=== PATIENT | male | born 1970 | race African-American/Black ===

== ENCOUNTER 2016-04-17 09:03 | Emergency (ER) | payer OTHER ==
[~2016-04-17] VITALS: Ht 180.3 cm; Wt 90.7 kg
[~2016-04-17 09:03] MED LIST: CEPHALEXIN500 MG ORAL; MECLIZINE HCL25 MG ORAL; NKM; TRAMADOL HCL50 MG ORAL
[2016-04-17] MEDS ORDERED: Ketorolac 60mg Inj IM ONE (09:45)
--- NOTE | 2016-04-17 09:46 | Emergency Room Report ---
History of Present Illness General Chief Complaint: Abdominal Pain Source: Patient Present Illness HPI Patient presents with right inguinal abdominal pain Onset yesterday Patient was here previously in January that he has follow up with his primary physician and everything turned out well Previously patient was having flank and lower abdominal pain That seemed to have improved however the pain has now localized to the inguinal area Denies any blood in the urine denies any other chest pain or shortness of breath Denies any testicular pain Denies any pain with urination Inguinal pain is 3/10 sharp Allergies: Coded Allergies: No Known Allergies (Unverified , 03/21/14) Patient History Past Medical History: see triage record Pertinent Family History: none Reviewed Nursing Documentation: PMH: Agreed, PSxH: Agreed Nursing Documentation-PMH Past Medical History: No Stated History Review of Systems All Other Systems: negative except mentioned in HPI Physical Exam Vital Signs Date Time Temp Pulse Resp B/P Pulse Ox O2 Delivery O2 Flow Rate FiO2 04/17/16 09:10 98.1 80 18 150/88 99 Room Air Sp02 EP Interpretation: reviewed, normal General Appearance: well appearing, no apparent distress Head: normocephalic, atraumatic Eyes: bilateral eye EOMI, bilateral eye PERRL ENT: hearing grossly normal, normal pharynx, TMs + canals normal, uvula midline Neck: full range of motion, supple, no meningismus, no bony tend Respiratory: lungs clear, normal breath sounds, no rhonchi, no respiratory distress, no retraction, no accessory muscle use Cardiovascular #1: normal peripheral pulses, regular rate, rhythm, no edema, no gallop, no JVD, no murmur Gastrointestinal: normal bowel sounds, non tender - Physical to reproduce the pain however subjectively just at the distal inguinal canal on the right side, testicles nontender, , soft, no mass, no organomegaly, non-distended, no guarding, no hernia, no pulsatile mass, no rebound Genitourinary: no CVA tenderness Musculoskeletal: normal inspection Neurologic: oriented x3, responsive, design director III-XII nml as tested, motor strength/ tone normal, sensory intact Psychiatric: mood/affect normal Skin: normal color, no rash, warm/dry, palpation normal Lymphatic: normal inspection, no adenopathy Medical Decision Making Diagnostic Impression: Primary Impression: Obstructive uropathy ER Course With the history exam and presentation, multiple differentials considered, including but not limited to appendicitis, gastritis, cholecystitis, diverticulitis Patient's CAT scan reveals to distal ureteral kidney stones appear to be obstructive with resulting in hydronephrosis Patient was given further IV hydration Pain has been well-controlled with the initial Toradol At this time given the patient's repeat presentation unlikely retained stones patient require admission and urology intervention After admission patient now states that he feels significantly better, and wants to try to be at home I did advice him that the stones being retained air can lead to worsening symptoms, sepsis and worsening infection possible internal injury with hemorrhage and bleeding however the patient is refusing admission and further care And will have further outpatient follow Labs Test 04/17/16 09:14 04/17/16 12:23 Urine Color Yellow Urine Appearance Cloudy Urine pH 5 (4.5-8.0) Urine Specific [place] 1.025 (1.005-1.035) Urine Protein 2+ (NEGATIVE) Urine Glucose (UA) Negative (NEGATIVE) Urine Ketones 1+ (NEGATIVE) Urine Occult Blood 5+ (NEGATIVE) Urine Nitrite Negative (NEGATIVE) Urine Bilirubin Negative (NEGATIVE) Urine Urobilinogen Normal MG/DL (0.0-1.0) Urine Leukocyte Esterase 2+ (NEGATIVE) Urine RBC 20-30 /HPF (0 - 0) Urine WBC 5-10 /HPF (0 - 0) Urine Squamous Epithelial Cells Few /LPF (NONE/OCC) Urine Bacteria Few /HPF (NONE) Urine Mucus Few /LPF (NONE/OCC) White Blood Count 7.0 K/UL (4.8-10.8) Red Blood Count 5.53 M/UL (4.70-6.10) Hemoglobin 16.4 G/DL (14.2-18.0) Hematocrit 48.3 % (42.0-52.0) Mean Corpuscular Volume 87 FL (80-99) Mean Corpuscular Hemoglobin 29.7 PG (27.0-31.0) Mean Corpuscular Hemoglobin Concent 34.0 G/DL (32.0-36.0) Red Cell Distribution Width 11.2 % (11.6-14.8) Platelet Count 291 K/UL (150-450) Mean Platelet Volume 6.6 FL (6.5-10.1) Neutrophils (%) (Auto) 50.8 % (45.0-75.0) Lymphocytes (%) (Auto) 32.9 % (20.0-45.0) Monocytes (%) (Auto) 8.0 % (1.0-10.0) Eosinophils (%) (Auto) 7.3 % (0.0-3.0) Basophils (%) (Auto) 1.1 % (0.0-2.0) Sodium Level 141 mEQ/L (135-145) Potassium Level 4.3 mEQ/L (3.4-4.9) Chloride Level 100 mEQ/L (98-107) Carbon Dioxide Level 27 mEQ/L (20-30) Anion Gap 14 (5-15) Blood Urea Nitrogen 11 mg/dL (7-23) Creatinine 0.9 mg/dL (0.7-1.2) Estimat Glomerular Filtration Rate > 60 mL/min (>60) Glucose Level 100 mg/dL (74-106) Calcium Level 8.6 mg/dL (8.6-10.2) CT/MRI/US Diagnostic Results CT/MRI/US Diagnostic Results : Impression CT abdomen pelvis: Evidence of to distal ureteral stones, hydronephrosis, obstructive in nature 6 and 7 mm Last Vital Signs Date Time Temp Pulse Resp B/P Pulse Ox O2 Delivery O2 Flow Rate FiO2 04/17/16 09:10 98.1 80 18 150/88 99 Room Air Status: improved Disposition: HOME, SELF-CARE Condition: Improved Scripts Ibuprofen* (MOTRIN*) 600 Mg Tablet 600 MG ORAL Q8H Y for For Pain, #30 TAB 0 Refills Prov: MARY GRACE VEGA D.O. 04/17/16 Tamsulosin Hcl (TAMSULOSIN HCL*) 0.4 Mg Cap.er.24h 0.4 MG ORAL BEDTIME, #20 CAP Prov: MARY GRACE VEGA D.O. 04/17/16 Ciprofloxacin Hcl* (CIPROFLOXACIN HCL*) 500 Mg Tablet 500 MG ORAL Q12H, #14 TAB 0 Refills Prov: MARY GRACE VEGA D.O. 04/17/16 Referrals: [facility] (PCP) Additional Instructions: You have perfuse admission to the hospital, this coming to worsening symptoms if you change your mind please return to the emergency room MARY GRACE VEGA D.O. Apr 17, 2016 09:46
[2016-04-17 10:00] VITALS: BP 155/102
[2016-04-17 10:19] LABS: APPEARANCE,URINE CLOUDY; KETONES,URINE 1+ (NEGATIVE); LEUKOCYTE ESTERASE ,URINE 2+ (NEGATIVE); NITRITE,URINE NEGATIVE (NEGATIVE); PH,URINE 5 (4.5-8.0); PROTEIN,URINE 2+ (NEGATIVE); UROBILINOGEN,URINE NORMAL MG/DL (0.0-1.0)
[2016-04-17 10:35] LABS: BACTERIA,URINE FEW /HPF; RBC,URINE 20-30 /HPF (0 - 0); SQUAMOUS EPITHELIAL CELL,UR FEW /LPF (NONE/OCC)
[2016-04-17 10:36] LABS: MUCUS,URINE FEW /LPF (NONE/OCC)
[2016-04-17 11:00] VITALS: BP 139/97
[2016-04-17 11:41] VITALS: BP 139/97
[2016-04-17 12:47] LABS: BASOPHILS % (AUTO) 1.1 % (0.0-2.0); EOSINOPHILS % (AUTO) 7.3 % (0.0-3.0); LYMPHOCYTES % (AUTO) 32.9 % (20.0-45.0); MEAN CORPUSCULAR HEMOGLOBIN 29.7 PG (27.0-31.0); MEAN CORPUSCULAR VOLUME 87 FL (80-99); MEAN PLATELET VOLUME 6.6 FL (6.5-10.1); NEUTROPHILS % (AUTO) 50.8 % (45.0-75.0); PLATELET COUNT 291 K/UL (150-450); RED BLOOD COUNT 5.53 M/UL (4.70-6.10); RED CELL DISTRIBUTION WIDTH 11.2 % (11.6-14.8)
[2016-04-17 12:56] LABS: ANION GAP 14 (5-15); CALCIUM 8.6 mg/dL (8.6-10.2); CARBON DIOXIDE 27 mEQ/L (20-30); CHLORIDE 100 mEQ/L (98-107); CREATININE 0.9 mg/dL (0.7-1.2); GLOMERULAR FILTRATION RATE > 60 mL/min (>60); HEMOLYSIS 10; POTASSIUM 4.3 mEQ/L (3.4-4.9); SODIUM 141 mEQ/L (135-145)
[2016-04-17] MEDS ORDERED: CIPROFLOXACIN500 M2 ORAL (14:14)
[2016-04-17] MEDS ORDERED: IBUPROFEN600 MG ORAL (14:14)
[2016-04-17] MEDS ORDERED: TAMSULOSIN HCL0.4 MG ORAL (14:14)
[2016-04-17 14:22] VITALS: BP 131/84
[2016-04-17 14:23] VITALS: BP 131/84
--- NOTE | 2016-04-21 11:45 | Diagnostic Imaging Report ---
Indication: Abdominal pain Technique: Continuous helical transaxial imaging of the abdomen and pelvis was obtained from the lung bases to the pubic symphysis. No intravenous contrast was administered. Coronal 2-D reformats were also obtained. Total Dose length Product (DLP): [address] Dose Index Volume (CTDIvol): 15 mGy Comparison: none Findings: The lung bases are clear. There is a nodule in the left upper quadrant next to the spleen measuring 2 cm. 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 There is moderate right hydronephrosis with some periureteral stranding secondary to 2 stones present within the distal ureter, stacked on each other. The stones measure between 6 and 7 mm each and are seen several centimeters proximal to the ureterovesical junction. No other stones are demonstrated within either kidney. Diverticula are noted within the colon. Urinary bladder is unremarkable in appearance. Surgical clips are noted in relation to the expected location of the appendix which is not identified. The fat in the mesenteric root appears slightly increased in attenuation compared to the remainder of the mesenteric fat. The reason for this is not known. Small nonspecific node demonstrated in the right inguinal region measuring 1.3 CM. Impression: Right hydronephrosis secondary to 2 stones in the distal right ureter measuring 6 and 7 mm. Status post appendectomy Diverticulosis of the colon Mesenteric panniculitis Accessory spleen The CT scanner at [facility] is accredited by the [employer] and the scans are performed using protocols designed to limit radiation exposure to as low as reasonably achievable to attain images of sufficient resolution adequate for diagnostic evaluation.
== END 2016-04-17 14:24 | disposition home or self-care (01) ==
LOC: ENRESERV → ENRESERVDT → ENRESERVTM → EMR 09:32 → EDBEDREQ 12:43 → 4E 13:13 → UNDOADMIN 13:13 → EDBEDREQ 13:27
DX: N13.9 Obstructive and reflux uropathy, unspecified (principal)
CPT/HCPCS: 36415; 74176; 80048; 81003; 85025; 96372; 96374

== ENCOUNTER 2017-06-02 13:05 | Emergency (ER) | payer OTHER ==
[~2017-06-02] VITALS: Ht 170.2 cm; Wt 90.7 kg
[~2017-06-02 13:05] MED LIST changes: +CIPROFLOXACIN500 M2 ORAL; +IBUPROFEN600 MG ORAL; +TAMSULOSIN HCL0.4 MG ORAL
--- NOTE | 2017-06-02 14:42 | Emergency Room Report ---
History of Present Illness General Chief Complaint: Upper Respiratory Illness Source: Patient Present Illness HPI 46 yo male patient presents to ER complaining of cough and flu-like symptoms times x1 day Patient complains of cough with sputum; denies blood in sputum. Patient reports subjective fever. Denies hx of asthma, denies hx of cardiovascular disease. Reports hx of sick contacts at home with similar symptoms. Denies diarrhea, vomiting, and chest pain. Denies diarrhea, abdominal pain, loss of vision. Allergies: Coded Allergies: No Known Allergies (Unverified , 03/21/14) Patient History Past Medical History: see triage record Reviewed Nursing Documentation: PMH: Agreed, PSxH: Agreed Nursing Documentation-PMH Past Medical History: No History, Except For Hx Gastrointestinal Problems: Yes - appendicitis Review of Systems All Other Systems: negative except mentioned in HPI Physical Exam Vital Signs Date Time Temp Pulse Resp B/P (MAP) Pulse Ox O2 Delivery O2 Flow Rate FiO2 06/02/17 13:09 97.7 110 24 94 Room Air 97.7 Sp02 EP Interpretation: reviewed, normal General Appearance: well appearing, no apparent distress, alert, GCS 15 Head: normocephalic, atraumatic Eyes: bilateral eye normal inspection, bilateral eye PERRL ENT: hearing grossly normal, normal pharynx, no angioedema, normal voice, uvula midline, moist mucus membranes Neck: full range of motion Respiratory: normal breath sounds, no retraction, no accessory muscle use, speaking full sentences, wheezing Cardiovascular #1: regular rate, rhythm, no edema Gastrointestinal: non tender, soft, no mass, non-distended, no guarding, no rebound Genitourinary: no CVA tenderness Musculoskeletal: back normal, digits/nails normal, gait/station normal, normal range of motion, non-tender, no calf tenderness, Jessica's Sign negative Neurologic: alert, oriented x3, responsive, motor strength/tone normal, sensory intact Psychiatric: mood/affect normal Skin: no rash Lymphatic: no adenopathy Medical Decision Making PA Attestation Dr. Dominique is my supervising Physician whom patient management has been discussed with. Diagnostic Impression: Primary Impression: Wheezing Additional Impression: Upper respiratory infection ER Course Pt presents to ED c/o asthma symptoms. DDX considered but are not limited to asthma, viral URI, influenza, bronchitis, pneumonia. VITAL SIGNS are WNL, patient is afebrile. Mild elevation of patient pulse. PE patient wheezing, no leg swelling, negative Jessica's sign. No hx of cardiovascular disease. Low suspicion for PE per Wells' criteria. Ordered breathing treatment and medication. Will order CXR to rule out pneumonia due to subjective fever at home. ER COURSE Patient provided with prednisone. Albuterol/Atrovent breathing treatment provided. Following treatment patient states no longer having difficulty with breathing. Lungs clear to auscultation, moving air better with breathing. Patient is resting comfortably in no acute distress, speaking full sentences, nontoxic appearing, resting comfortably. Patient reports ready to be discharged home. Patient vitals stable at discharge. DISCHARGE: -Rx given for Prednisone. -Rx provided for Albuterol MDI. -Rx provided for Promethazine cough syrup -Rx provided for Tylenol At this time pt is stable for d/c to home. Patient is resting comfortably in no acute distress, nontoxic appearing, able to answer questions without difficulty. Patient to take medications as instructed Will provide with patient care instructions and any necessary prescriptions. Care plan and follow-up instructions provided. Patient instructed to follow-up with primary care provider in 3 - 5 days. Patient questions asked and answered. Patient reports understanding and agreement to treatment plan. ER precautions given. Patient instructed to return to ER immediately for any new or worsening of symptoms including but not limited to increasing SOB, persistent fever. Chest X-Ray Diagnostic Results Chest X-Ray Diagnostic Results : Chest X-Ray Ordered: Yes # of Views/Limited/Complete: 1 View Indication: Chest Pain EP Interpretation: Yes PA Xray: Interpretation reviewed, by supervising MD, and agrees with findings. Interpretation: no consolidation, no effusion, no pneumothorax, no acute cardiopulmonary disease Impression: No acute disease DANIEL Rashid PA-C Last Vital Signs Date Time Temp Pulse Resp B/P (MAP) Pulse Ox O2 Delivery O2 Flow Rate FiO2 06/02/17 14:18 110 24 Room Air 06/02/17 14:18 97.7 94 97.7 Disposition: HOME, SELF-CARE Condition: Stable Scripts Acetaminophen* (TYLENOL EXTRA STRENGTH*) 500 Mg Tablet 500 MG ORAL Q8H Y for Prn Headache/Temp > 101, #30 TAB 0 Refills Prov: Blade Rashid P.A. 06/02/17 Promethazine Hcl (PROMETHAZINE HCL*) 6.25 Mg/5 Ml Syrup 5 ML ORAL Q8H, #120 ML 0 Refills Prov: Blade Rashid 06/02/17 Prednisone* (PREDNISONE*) 20 Mg Tablet 40 MG ORAL DAILY for 5 Days, #10 TAB Prov: Blade Rashid 06/02/17 Albuterol Sulfate* (ALBUTEROL SULFATE MDI*) 8.5 Gm Hfa.aer.ad 2 PUFF INH Q4H, #1 INH 0 Refills Prov: Blade Rashid 06/02/17 Referrals: [facility] (PCP) Patient Instructions: Upper Respiratory Infection, Adult Additional Instructions: Followup with primary care provider in 3 -5 days. Take medications as directed. Patient questions asked and answered. ER precautions given, patient instructed to return to ER immediately for any new or worsening of symptoms. Blade Rashid Jun 02, 2017 14:42
[2017-06-02] MEDS ORDERED: Dexamethasone Elixir 0.25mg/2.5ml ORAL ONE (14:45)
[2017-06-02] MEDS ORDERED: Albuterol/Ipratropium 3ml neb HHN ONE (14:45)
[2017-06-02] MEDS ORDERED: TYLENOL EXTRA500 MG ORAL (15:26)
[2017-06-02] MEDS ORDERED: PROMETHAZI6.25 MG/1 ORAL (15:26)
[2017-06-02] MEDS ORDERED: ALBUTEROL SULF8.5 GM INH (15:26)
[2017-06-02] MEDS ORDERED: PREDNISONE20 MG ORAL (15:26)
--- NOTE | 2017-06-02 16:38 | Diagnostic Imaging Report ---
Indication: Chest pain Technique: One view of the chest Comparison: none Findings: Inspiration is suboptimal. There is some crowding of vascular markings and atelectatic changes at the right lung base. The heart size is normal. Impression: Hypoventilatory exam. No definite acute process
[2017-06-02 17:38] VITALS: BP 127/78
== END 2017-06-02 16:00 | disposition home or self-care (01) ==
LOC: EMR 13:45
DX: J06.9 Acute upper respiratory infection, unspecified (principal); R06.2 Wheezing
CPT/HCPCS: 71045; 94640; 94664; 99284; J7620

== ENCOUNTER 2019-10-24 14:20 | Emergency (ER) | payer OTHER ==
[~2019-10-24] VITALS: Ht 180.3 cm; Wt 89.4 kg
[~2019-10-24 14:20] MED LIST changes: +ALBUTEROL SULF8.5 GM INH; +PREDNISONE20 MG ORAL; +PROMETHAZI6.25 MG/1 ORAL; +TYLENOL EXTRA500 MG ORAL
[2019-10-24 14:45] VITALS: BP 145/93
[2019-10-24] MEDS ORDERED: Morphine Sulfate 4mg/ml Inj (IV USE ONLY) IVP ONE (14:45)
[2019-10-24] MEDS ORDERED: Ketorolac 30mg Inj IV ONE (14:45)
--- NOTE | 2019-10-24 14:45 | NUR ---
ED Nurse Note: Patient walked in to ER from home due to left flank pain that radiaits to his groin since this morning. Also c/o urinary frequency. Patient presented anxious, AAO x4, VSS at this time, c/o pain 12/08. ER MD at bed side.
--- NOTE | 2019-10-24 14:50 | NUR ---
ED Nurse Note: IV line was established on right AC 20 ga, blood and urine specimen collected, sent to lab
[2019-10-24 14:57] LABS: APPEARANCE,URINE CLEAR; BILIRUBIN, URINE NEGATIVE (NEGATIVE); GLUCOSE, URINE (UA) NEGATIVE (NEGATIVE); KETONES,URINE 1+ (NEGATIVE); LEUKOCYTE ESTERASE ,URINE 1+ (NEGATIVE); NITRITE,URINE NEGATIVE (NEGATIVE); PH,URINE 5 (4.5-8.0); PROTEIN,URINE 2+ (NEGATIVE); UROBILINOGEN,URINE 1 MG/DL (0.0-1.0)
[2019-10-24 14:59] LABS: BASOPHILS % (AUTO) 0.9 % (0.0-2.0); EOSINOPHILS % (AUTO) 6.3 % (0.0-3.0); HEMATOCRIT 47.3 % (42.0-52.0); HEMOGLOBIN 15.8 G/DL (14.2-18.0); MEAN CORPUSCULAR VOLUME 92 FL (80-99); MONOCYTES % (AUTO) 8.5 % (1.0-10.0); NEUTROPHILS % (AUTO) 61.3 % (45.0-75.0); PLATELET COUNT 261 K/UL (150-450); RED BLOOD COUNT 5.16 M/UL (4.70-6.10); RED CELL DISTRIBUTION WIDTH 11.7 % (11.6-14.8); WHITE BLOOD COUNT 5.8 K/UL (4.8-10.8)
--- NOTE | 2019-10-24 15:00 | Emergency Room Report ---
History of Present Illness General Chief Complaint: Pain Source: Patient Present Illness HPI Disclaimer: Please note that this report is being documented using DRAGON technology. This can lead to erroneous entry secondary to incorrect interpretation by the dictating instrument. HPI: 49-year-old male history of kidney stones presents with left flank pain. He states left flank pain started this morning. About 9 out of 10 left flank radiating to the left groin. Denies fevers nausea or vomiting. Does report urinary frequency. Patient does have a history of kidney stones last episode approximately 1 year ago. At that time he had 2 right-sided kidney stones that did pass spontaneously. PMH: Nephrolithiasis PSH: Reviewed Social Hx: Occasional smoker denied drinking or illicit drug use Allergies: Coded Allergies: No Known Allergies (Unverified , 03/21/14) COVID-19 Screening Contact w/high risk pt: No Experienced COVID-19 symptoms?: No COVID-19 Testing performed [employer]: Yes COVID-19 Screening: Negative COVID-19 COVID-19 Testing Source: 3 weeks ago Patient History Reviewed Nursing Documentation: PMH: Agreed; PSxH: Agreed Nursing Documentation-PMH Past Medical History: No History, Except For Hx Gastrointestinal Problems: Yes - appendicitis Review of Systems All Other Systems: negative except mentioned in HPI Physical Exam Vital Signs Date Time Temp Pulse Resp B/P (MAP) Pulse Ox O2 Delivery O2 Flow Rate FiO2 10/24/19 14:30 97.7 74 16 145/93 (110) 99 Room Air Sp02 EP Interpretation: reviewed, normal General Appearance: well appearing, no apparent distress Head: normocephalic, atraumatic Eyes: bilateral eye PERRL, bilateral eye EOMI ENT: hearing grossly normal, moist mucus membranes Neck: full range of motion, supple Respiratory: lungs clear, normal breath sounds, no rhonchi, no respiratory distress, no retraction, no wheezing Cardiovascular #1: normal peripheral pulses, regular rate, rhythm, no murmur Gastrointestinal: non tender, soft, non-distended, no guarding Genitourinary: CVA tenderness (L), other - No right CVA tenderness noted Neurologic: alert, oriented x3, no focal defects Skin: normal color, warm/dry Medical Decision Making Diagnostic Impression: Primary Impression: Renal colic on left side Additional Impression: Kidney stone on left side ER Course MDM: Differential diagnosis included but not limited to recurrent kidney stone, UTI, pyelonephritis to name a few Clinical course-IV, IV fluids, pain control given. CT scan of the abdomen and pelvis ordered and demonstrated 2 mm left UVJ stone. Urinalysis was consistent with kidney stone with multiple RBCs but negative nitrites and leukocytes low suspicion for UTI at this time. On my reassessment patient's pain was controlled he was no acute distress stable for discharge as I do believe the stone will spontaneously pass. Patient was discharged with instructions to continue p.o. hydration and pain control. Follow-up PMD given return precautions. Labs - Laboratory Tests Test 10/24/19 14:44 White Blood Count 5.8 K/UL (4.8-10.8) Red Blood Count 5.16 M/UL (4.70-6.10) Hemoglobin 15.8 G/DL (14.2-18.0) Hematocrit 47.3 % (42.0-52.0) Mean Corpuscular Volume 92 FL (80-99) Mean Corpuscular Hemoglobin 30.5 PG (27.0-31.0) Mean Corpuscular Hemoglobin Concent 33.3 G/DL (32.0-36.0) Red Cell Distribution Width 11.7 % (11.6-14.8) Platelet Count 261 K/UL (150-450) Mean Platelet Volume 5.8 FL (6.5-10.1) L Neutrophils (%) (Auto) 61.3 % (45.0-75.0) Lymphocytes (%) (Auto) 23.0 % (20.0-45.0) Monocytes (%) (Auto) 8.5 % (1.0-10.0) Eosinophils (%) (Auto) 6.3 % (0.0-3.0) H Basophils (%) (Auto) 0.9 % (0.0-2.0) Urine Color Yellow Urine Appearance Clear Urine pH 5 (4.5-8.0) Urine Specific [place] 1.025 (1.005-1.035) Urine Protein 2+ (NEGATIVE) H Urine Glucose (UA) Negative (NEGATIVE) Urine Ketones 1+ (NEGATIVE) H Urine Blood 5+ (NEGATIVE) H Urine Nitrite Negative (NEGATIVE) Urine Bilirubin Negative (NEGATIVE) Urine Urobilinogen 1 MG/DL (0.0-1.0) H Urine Leukocyte Esterase 1+ (NEGATIVE) H Urine RBC Tntc /HPF (0 - 0) H Urine WBC 2-4 /HPF (0 - 0) Urine Squamous Epithelial Cells Occasional /LPF Urine Calcium Oxalate Crystals Few /LPF (NONE) Urine Bacteria Occasional /HPF (NONE) Urine Mucus Many /LPF (NONE/OCC) H Sodium Level 141 MMOL/L (136-145) Potassium Level 4.5 MMOL/L (3.5-5.1) Chloride Level 105 MMOL/L (98-107) Carbon Dioxide Level 30 MMOL/L (21-32) Anion Gap 6 mmol/L (5-15) Blood Urea Nitrogen 14 mg/dL (7-18) Creatinine 1.3 MG/DL (0.55-1.30) Estimated Glomerular Filtration Rate 58.9 mL/min (>60) Glucose Level 108 MG/DL (74-106) H Calcium Level 9.1 MG/DL (8.5-10.1) Total Bilirubin 0.7 MG/DL (0.2-1.0) Aspartate Amino Transferase (AST) 15 U/L (15-37) Alanine Aminotransferase (ALT) 26 U/L (12-78) Alkaline Phosphatase 81 U/L (46-116) Total Protein 7.4 G/DL (6.4-8.2) Albumin 4.1 G/DL (3.4-5.0) Globulin 3.3 g/dL Albumin/Globulin Ratio 1.2 (1.0-2.7) On reevaluation: Patient's pain controlled no acute distress Plan-discharge with prescription, follow-up PMD CT/MRI/US Diagnostic Results CT/MRI/US Diagnostic Results : Imaging Test Ordered: CT scan omentum pelvis Impression IMPRESSION: 2 mm stone near the left UVJ. Mild left hydroureteronephrosis. Last Vital Signs Date Time Temp Pulse Resp B/P (MAP) Pulse Ox O2 Delivery O2 Flow Rate FiO2 10/24/19 14:30 97.7 74 16 145/93 (110) 99 Room Air Scripts Hydrocodone Bit/Acetaminophen 5-325* (NORCO 5-325 TABLET*) 1 Each Tablet 1 TAB ORAL Q6H PRN for FOR PAIN, #10 TAB 0 Refills Prov: Jeff Yang M.D. 10/24/19 Ibuprofen* (MOTRIN*) 600 Mg Tablet 600 MG ORAL Q6H PRN for For Pain, #30 TAB 0 Refills Prov: Jeff Yang M.D. 10/24/19 Referrals: [facility]ERR[facility] (PCP) Jeff Yang M.D. Oct 24, 2019 15:00
--- NOTE | 2019-10-24 15:00 | NUR ---
ED Nurse Note: patient was taken to CT via [facility]
[2019-10-24 15:06] LABS: ANION GAP 6 mmol/L (5-15); BLOOD UREA NITROGEN 14 mg/dL (7-18); CALCIUM 9.1 MG/DL (8.5-10.1); CARBON DIOXIDE 30 MMOL/L (21-32); CHLORIDE 105 MMOL/L (98-107); CREATININE 1.3 MG/DL (0.55-1.30); POTASSIUM 4.5 MMOL/L (3.5-5.1); SODIUM 141 MMOL/L (136-145)
[2019-10-24 15:08] LABS: COLOR,URINE YELLOW
--- NOTE | 2019-10-24 15:10 | NUR ---
ED Nurse Note: patient is back, stated pain 2, VSS at this time, OPAL moore
[2019-10-24 15:11] LABS: ALANINE AMINOTRANSFERASE 26 U/L (12-78); ALBUMIN 4.1 G/DL (3.4-5.0); ALBUMIN/GLOBULIN RATIO 1.2 (1.0-2.7); ALKALINE PHOSPHATASE 81 U/L (46-116); ASPARTATE AMINO TRANSFERASE 15 U/L (15-37); BILIRUBIN,TOTAL 0.7 MG/DL (0.2-1.0)
--- NOTE | 2019-10-24 15:36 | Diagnostic Imaging Report ---
EXAM: CT Abdomen and Pelvis Without Intravenous Contrast CLINICAL HISTORY: FLANK TECHNIQUE: Axial computed tomography images of the abdomen and pelvis without intravenous contrast. CTDI is 7.8 mGy and DLP is 452.3 mGy-cm. One or more of the following dose reduction techniques were used: automated exposure control, adjustment of the mA and/or kV according to patient size, use of iterative reconstruction technique. COMPARISON: None. FINDINGS: Lung bases: Unremarkable. No mass. No consolidation. ABDOMEN: Liver: Punctate calcification in the liver. Gallbladder and bile ducts: Cholelithiasis. No ductal dilation. Pancreas: Unremarkable. No ductal dilation. Spleen: Small splenule. Mild splenomegaly. Adrenals: Unremarkable. No mass. Kidneys and ureters: 2 mm stone near the left UVJ. Mild left hydroureteronephrosis. No hydronephrosis or stone on the right. Stomach and bowel: Diverticulosis without evidence of diverticulitis. No bowel obstruction. PELVIS: Appendix: Prior appendectomy. Bladder: Please see above. Reproductive: Unremarkable as visualized. ABDOMEN and PELVIS: Intraperitoneal space: No fluid collection or free air. Bones/joints: Probable hemangiomas in the L1 and L3 vertebral bodies. No acute fracture. No dislocation. Soft tissues: Small fat-containing umbilical hernia. Vasculature: Unremarkable. No abdominal aortic aneurysm. Lymph nodes: Haziness in the central mesentery with mildly prominent mesenteric lymph nodes. This may represent mesenteric panniculitis or other infectious/inflammatory process, similar to prior exam. IMPRESSION: 2 mm stone near the left UVJ. Mild left hydroureteronephrosis.
[2019-10-24] MEDS ORDERED: NORCO 5-325 TA1 EAC1 ORAL (15:55)
[2019-10-24] MEDS ORDERED: IBUPROFEN600 M1 ORAL (15:55)
--- NOTE | 2019-10-24 16:15 | NUR ---
ER DISCHARGE NOTE: Patient is cleared to be discharged per ERMD, pt is aox4, on room air, with stable vital signs. pt was given dc and prescription instructions, pt was able to verbalize understanding, pt id band and iv site removed without complications. pt is able to ambulate with steady gait. pt took all belongings. Pt given 2 prescriptions.
[2019-10-24 16:16] VITALS: BP 137/91
== END 2019-10-24 16:17 | disposition home or self-care (01) ==
LOC: EMR 14:38
DX: N20.0 Calculus of kidney (principal); Z87.442 Personal history of urinary calculi; N13.30 Unspecified hydronephrosis
CPT/HCPCS: 36415; 74176; 80053; 81003; 85025; 96361; 96374; 96375; J1885; J2270; J2405; J7030; Z7502; 99284